=== PATIENT | male | born 2000 | race African-American/Black ===

== ENCOUNTER 2022-11-06 12:20 | Emergency (ER) | payer BC, SELFPAY ==
[2022-11-06 12:22] VITALS: BP 133/99; RESP 14; TEMP 36.2; O2SAT 98
[2022-11-06 12:36] LABS: Basophils Percent Auto 0.2 % (0.2-1.2); Eosinophils Percent Auto 0.3 % (0-4.4); Hematocrit 47.5 % (42.0-52.0); Hemoglobin 15.6 g/dL (14.0-18.0); Immature Granulocyte Absolute 0.05 K/mm3 (0.00-0.031); Immature Granulocyte Percent A 0.4 % (0-0.5); Lymphocytes Absolute Auto 0.82 K/mm3 (0.9-3.2); Mean Corpuscular HGB Conc 32.8 g/dl (32-36); Mean Corpuscular Hemoglobin 31.2 pg (26-34); Mean Platelet Volume 10.7 fl (7.4-10.4); Monocytes Absolute Auto 0.6 K/mm3 (0.1-0.6); Monocytes Percent Auto 4.9 % (2.6-8.5); Neutrophils Absolute Auto 10.2 K/mm3 (1.3-6.7); Neutrophils Percent Auto 87.2 % (45.5-73.1); Platelet Count Result 283 k/mm3 (150-375); White Blood Count 11.7 K/mm3 (4.5-10.0)
[2022-11-06 12:45] LABS: Alanine Aminotransferase 36 U/L (6-50); Albumin Level 4.9 g/dL (3.5-5.1); Alkaline Phosphatase 80 U/L (38-126); Anion Gap 9 mmol/L (8-16); Aspartate Amino Transferase 44 U/L (17-59); Bilirubin,Total 1.9 mg/dL (0.2-1.3); Blood Urea Nitrogen 13 mg/dL (9-20); Calcium 8.8 mg/dL (8.4-10.2); Carbon Dioxide 28 mmol/L (22-30); Chloride 102 mmol/L (98-107); Estimated CRCL calculation 179 ml/min; Estimated Glomerular Filt Rate > 60; Glucose 108 mg/dL (65-110); Lipase 20 U/L (23-300); Sodium 139 mmol/L (137-145)
--- NOTE | 2022-11-06 12:52 | ED.NAVMDI ---
HPI - Nausea/Vomiting/Diarrhea General Chief complaint: Nausea/Vomiting/Diarrhea Stated complaint: N/V/abdominal pain Time Seen by Provider: 11/06/22 12:30 Source: RN notes reviewed History of Present Illness HPI Narrative: Patient presents emergency room from home for nausea vomiting. Patient states that symptoms began approximate 1230 last night. States that he has had numerous episodes of nausea and vomiting states been associate with abdominal pain that is mid abdominal and described as cramping in nature. He denies having diarrhea. He denies any fevers or chills or any other symptoms. States he has not taken anything for the symptoms. Related Data Allergies Allergy/AdvReac Type Severity Reaction Status Date / Time No Known Allergies Allergy Verified 11/06/22 12:32 Review of Systems Review of Systems: Gen.: Denies fevers or chills ENT: Denies congestion Respiratory: Denies shortness of breath or cough CV: Denies chest pain or palpitations GI: See HPI Musculoskeletal: Denies back pain or muscle pain Neuro: Denies numbness, tingling, weakness or focal weakness Skin: Denies rash Except as documented, all other systems reviewed and negative [facility] Past Medical History Medical History (Updated 11/06/22 @ 14:58 by Robin Ferris DO) Patient denies significant medical history Social History Social History (Updated 11/06/22 @ 12:53 by Robin Ferris DO) Smoking status: Never smoker Exam Narrative: APPEARANCE: No acute distress, nontoxic, resting in bed HEENT: Normocephalic, atraumatic, OMM RESPIRATORY: No respiratory distress, clear to auscultation bilaterally with no rhonchi wheezing or rales CARDIOVASCULAR: RRR s murmur ABDOMINAL: Soft nondistended diffusely tender palpation no rebound or guarding MUSCULOSKELETAl: Moves all extremities. No clubbing, cyanosis or edema. NEURO: Awake and alert. Following commands, speech normal, no focal deficits SKIN:: Warm, dry. Normal Color PSYCHIATRIC: Normal affect/mood Course Course Emergency Course: Patient states he is feeling much better at this time able to drink in the ED with no emesis states abdominal pain has resolved Patient states that they are feeling much better at this time. States abdominal pain has resolved. Repeat abdominal exam shows the patient's abdomen to be soft and nontender. Discussed with patient results of workup and diagnosis. Discussed need for follow-up with primary care physician, reasons to return to the emergency department in proper use of medication. Patient understands and agrees to current treatment plan Vital Signs Vital signs: Vital Signs Temperature 97.1 F L 11/06/22 12:22 Respiratory Rate 14 11/06/22 12:22 Blood Pressure 133/99 H 11/06/22 12:22 Pulse Oximetry 98 11/06/22 12:22 Oxygen Delivery Room Air 11/06/22 12:22 Temperature 97.1 F L 11/06/22 12:22 Pulse Rate 78 11/06/22 13:06 Respiratory Rate 14 11/06/22 12:22 Blood Pressure 137/84 11/06/22 13:06 Pulse Oximetry 98 11/06/22 12:22 Oxygen Delivery Room Air 11/06/22 12:22 MDM - Nausea/Vomiting/Diarrhea MDM Narrative Medical decision making narrative: Patient's abdomen is soft without significant pain or signs of surgical abdomen on serial exams. Lab and x-ray evaluations are reviewed and patient is felt to be a reasonable candidate for outpatient management. Patient was instructed as to limitations of x-ray and laboratory evaluation and encouraged to return to ED or primary physician for repeat exam in 12 hours if continued or worsening pain Lab Data 11/06/22 12:28 11/06/22 12:28 Labs: Lab Results 11/06/22 11/06/22 11/06/22 Range/Units 12:28 12:28 14:11 WBC 11.7 H (4.5-10.0) K/mm3 RBC 5.00 (4.6-6.20) M/mm3 Hgb 15.6 (14.0-18.0) g/dL Hct 47.5 (42.0-52.0) % MCV 95.0 (80-100) fl MCH 31.2 (26-34) pg MCHC 32.8 (32-36) g/dl RDW 12.0 (11.5-14.5) % Plt Count
[2022-11-06 13:05] VITALS: BP 126/74; BP 134/69; PULSE 79; PULSE 80
[2022-11-06 13:06] VITALS: BP 137/84; PULSE 78
[2022-11-06] MEDS: ONDANSETRON INJ 4 MG/2 ML VIAL IV PUSH (13:17)
[2022-11-06] MEDS: SODIUM CHLORIDE 0.9% IV 1,000 ML 999 ML IV CONT ×2 (13:17→14:43)
[2022-11-06] MEDS: KETOROLAC 30 MG/ML VIAL (*BKC) IV PUSH (13:17)
[2022-11-06] MEDS: FAMOTIDINE 20 MG/2 ML VIAL IV PUSH (13:18)
[2022-11-06 14:24] LABS: Appearance Urine Clear (Clear); Bacteria Urine None Seen /hpf; Bilirubin Urine Negative (Negative); Blood Urine Negative (Negative); Color Urine Yellow (Yellow); Glucose Urine UA Negative (Negative); Ketones Urine Negative (Negative); Leukocyte Esterase Ur Trace LEU/UL (Negative); Nitrate Urine Negative (Negative); Non Pathogenic Casts 0-2; Protein Urine Trace mg/dL (Negative); RBC Urine 0-2 /hpf (0-2); Specific Grav Ur 1.029 (1.001-1.035); Squamous Epithelial Cell Urine None seen /hpf (Few); WBC Urine 0-5 /hpf
[2022-11-06 14:33] LABS: Add Urine Microscopic? YES
== END 2022-11-06 15:14 | disposition home or self-care (01) ==
PROVIDERS: Emergency Provider Emergency Medicine
DX: R11.2 Nausea with vomiting, unspecified (principal); R10.84 Generalized abdominal pain
CPT/HCPCS: 36415; 80053; 81001; 83690; 85025; 96361; 96374; 96375; 99284; J1885; J2405; J7030

== ENCOUNTER 2023-01-29 09:02 | Emergency (ER) | payer BC, SELFPAY ==
[2023-01-29] VITALS (20 sets, daily range): BP systolic 102–138; BP diastolic 68–89; PULSE 72–101; RESP 15–27; TEMP 37; O2SAT 95–100
--- NOTE | ~2023-01-29 | XR_ITS ---
EXAMINATION: XR lumbar spine min 4V DATE: 01/29/2023 09:54 INDICATION: Low back pain TECHNIQUE: Anteroposterior, lateral, and bilateral oblique views of the lumbar spine, and cone-down l ateral view of the lumbosacral junction were obtained. COMPARISON: None. FINDINGS: No fracture, dislocation, or subluxation. The vertebral body heights, alignment, and interv ertebral disc spaces are normal. The paravertebral soft tissues are unremarkable. There is a 3 mm lef t pelvic calcification. Spina bifida occulta is noted at S1. IMPRESSION: 1. No acute osseous abnormality. 2. 3 mm left pelvic calcification which could reflect a phlebolith however recommend correlating for left flank pain as distal ureteral stone would have a similar appearance. Reviewed, dictated and finalized at location A. IMPRESSION: 1. No acute osseous abnormality. 2. 3 mm left pelvic calcification which could reflect a phlebolith however tammy mmend correlating for left flank pain as distal ureteral stone would have a sim ilar appearance.
--- NOTE | 2023-01-29 09:17 | ED.GENADULT ---
HPI - General Adult General Chief complaint: Headache Stated complaint: Headache, bodyache, dehdyrated Time Seen by Provider: 01/29/23 09:13 Source: patient Mode of arrival: ambulatory Limitations: no limitations History of Present Illness HPI narrative: Patient is a 22 y/o male who presents to the ED with c/o headache and LBP. Patient reports having a diffuse headache for the past 2 days. He states pain has been constant. He has tried taking Tylenol with minimal relief. Denies history of migraines. He also reports having nausea and low back pain for the last 1 day. Patient states he feels like he is dehydrated. He has been eating and drinking normally, but states it feels similar to when he was previously dehydrated. He denies working out in the heat, denies any recent fall or injury, strenuous activity, heavy lifting. Denies dizziness, lightheadedness, vomiting, abdominal pain, diarrhea, vision changes, numbness, weakness, neck pain, fevers. Related Data Allergies Allergy/AdvReac Type Severity Reaction Status Date / Time No Known Allergies Allergy Verified 01/29/23 09:12 Review of Systems Review of Systems: CONSTITUTIONAL: Denies fever, chills, or sweats. EYES: Denies visual changes. CARDIOVASCULAR: Denies chest pain. RESPIRATORY: Denies dyspnea. GASTROINTESTINAL: See HPI. GENITOURINARY: Denies dysuria or hematuria. MUSCULOSKELETAL: See HPI. NEUROLOGIC: See HPI. All systems reviewed & are unremarkable except as noted in HPI and below PMFSH Past Medical History Medical History Patient denies significant medical history Social History Social History Smoking status: Never smoker Exam Narrative: GENERAL: Well appearing, obese with BMI of 33.1, non-toxic, in no acute distress. HEAD: Normocephalic, atraumatic. ENT: MMs moist. NECK: Supple. No adenopathy, no masses. No meningeal signs. RESPIRATORY: Airway patent, respirations nonlabored. Clear to auscultation bilaterally, no rales, rhonchi, wheezing. CARDIOVASCULAR: Regular rate and rhythm without murmurs, rubs, or gallops. Radial pulses 2+ and equal bilaterally. ABDOMINAL: Soft, nontender, nondistended, no hepatosplenomegaly. Normoactive BS. MUSCULOSKELETAL: Moves all extremities. Strength/ROM intact without gross deformities. Very minimal lower midline lumbar paraspinal musculature tenderness bilaterally. No significant midline spinal tenderness. No palpable deformities or bony step-offs. SKIN: Warm, dry, normal color. No rashes. NEURO: A&O X3. Speech clear. Cranial nerves II-XII grossly intact. Steady gait. No ataxic movements. No neurologic deficits. PSYCHIATRIC: Appropriate mood and affect. Normal interaction. Course Vital Signs Vital signs: Vital Signs Temperature 98.6 F 01/29/23 09:08 Pulse Rate 101 H 01/29/23 09:08 Respiratory Rate 18 01/29/23 09:08 Blood Pressure 132/77 01/29/23 09:08 Pulse Oximetry 98 01/29/23 09:08 Oxygen Delivery Room Air 01/29/23 09:08 Temperature 98.6 F 01/29/23 09:08 Pulse Rate 72 01/29/23 11:19 Respiratory Rate 15 01/29/23 11:19 Blood Pressure 124/68 01/29/23 11:19 Pulse Oximetry 100 01/29/23 11:19 Oxygen Delivery Room Air 01/29/23 09:08 Medical Decision Making MDM Narrative Medical decision making narrative: Patient presented to ED with headache and low back pain, felt like he was dehydrated. Borderline tachycardic upon arrival, otherwise vital stable. Patient in no acute distress. Exam unremarkable. No focal neurologic deficits. Basic blood work obtained and unremarkable. No significant electrolyte abnormality. No significant signs of dehydration. X-ray lumbar spine without acute osseous abnormalities, did show possible phleboliths in the left pelvic region, could be appearance of distal ureter stone. Patient without any left flank pain. D
[2023-01-29 09:46] LABS: Basophils Percent Auto 0.5 % (0.2-1.2); Eosinophils Absolute Auto 0.1 K/mm3 (0-0.3); Eosinophils Percent Auto 1.4 % (0-4.4); Hematocrit 41.1 % (42.0-52.0); Hemoglobin 13.7 g/dL (14.0-18.0); Immature Granulocyte Absolute 0.02 K/mm3 (0.00-0.031); Immature Granulocyte Percent A 0.3 % (0-0.5); Lymphocytes Absolute Auto 0.74 K/mm3 (0.9-3.2); Lymphocytes Percent Auto 9.6 % (18.3-44.2); Mean Corpuscular HGB Conc 33.3 g/dl (32-36); Mean Corpuscular Hemoglobin 30.5 pg (26-34); Mean Corpuscular Volume 91.5 fl (80-100); Mean Platelet Volume 10.3 fl (7.4-10.4); Monocytes Absolute Auto 0.8 K/mm3 (0.1-0.6); Neutrophils Percent Auto 78.2 % (45.5-73.1); Platelet Count Result 241 k/mm3 (150-375); Red Blood Count 4.49 M/mm3 (4.6-6.20); Red Cell Distribution Width 11.6 % (11.5-14.5); White Blood Count 7.7 K/mm3 (4.5-10.0)
[2023-01-29] MEDS: ACETAMINOPHEN 500 MG TABLET 1000 MG PO (09:51)
[2023-01-29] MEDS: KETOROLAC 30 MG/ML VIAL (*BKC) IV PUSH (09:52)
[2023-01-29] MEDS: SODIUM CHLORIDE 0.9% IV 1,000 ML 999 ML IV CONT (09:52)
[2023-01-29] MEDS: ONDANSETRON INJ 4 MG/2 ML VIAL IV PUSH (09:52)
[2023-01-29 09:56] LABS: Alanine Aminotransferase 33 U/L (6-50); Albumin Level 4.2 g/dL (3.5-5.1); Alkaline Phosphatase 61 U/L (38-126); Anion Gap 8 mmol/L (8-16); Aspartate Amino Transferase 29 U/L (17-59); Bilirubin,Total 0.8 mg/dL (0.2-1.3); Blood Urea Nitrogen 13 mg/dL (9-20); Calcium 8.8 mg/dL (8.4-10.2); Carbon Dioxide 26 mmol/L (22-30); Chloride 102 mmol/L (98-107); Estimated CRCL calculation 155 ml/min; Estimated Glomerular Filt Rate > 60; Glucose 96 mg/dL (65-110); Magnesium 1.7 mg/dL (1.6-2.3); Potassium 3.9 mmol/L (3.4-5.0); Sodium 136 mmol/L (137-145)
[2023-01-29 10:34] LABS: Influenza A QL RT-PCR Negative (Negative); Influenza B QL RT-PCR Negative (Negative); SARS-CoV-2 RNA PCR Negative (Negative)
[2023-01-29 10:46] LABS: Appearance Urine Clear (Clear); Bilirubin Urine Negative (Negative); Blood Urine Negative (Negative); Color Urine Yellow (Yellow); Glucose Urine UA Negative (Negative); Ketones Urine Negative (Negative); Leukocyte Esterase Ur Negative LEU/UL (Negative); Nitrate Urine Negative (Negative); Protein Urine Negative (Negative); Urobilinogen Urine 0.2 mg/dL (<2.0); pH Urine 8.5 (5.0-9.0)
[2023-01-29 10:47] LABS: Add Urine Microscopic? NO
== END 2023-01-29 11:19 | disposition home or self-care (01) ==
PROVIDERS: Emergency Provider Physician Assistant
DX: R51.9 Headache, unspecified (principal); S39.012A Strain of muscle, fascia and tendon of lower back, initial encounter; Z20.822 Contact with and (suspected) exposure to COVID-19; X58.XXXA Exposure to other specified factors, initial encounter
CPT/HCPCS: 36415; 72110; 80053; 81003; 83735; 85025; 87636; 96361; 96374; 96375; 99284; A9270; J1885; J2405; J7030

== ENCOUNTER 2023-02-10 06:41 | Emergency (ER) | payer BC, SELFPAY ==
[2023-02-10 06:42] VITALS: BP 128/80; PULSE 92; RESP 14; TEMP 36.6; O2SAT 96
--- NOTE | 2023-02-10 07:11 | PC.NURSE ---
pt reports taking tylenol at 0500 but states it did not help the pain
[2023-02-10 07:15] VITALS: BP 117/80; PULSE 85; RESP 16; O2SAT 98
--- NOTE | 2023-02-10 07:27 | ED.EAR ---
HPI - Ear Problem General Chief complaint: Ear Stated complaint: L ear pain Time Seen by Provider: 02/10/23 07:01 History of Present Illness HPI Narrative: Patient is a 22-year-old male who presents to the ER with pain to the left ear. Increased over the last evening. Throbbing with muffled hearing. No sinus congestion or sore throat or cough. No fevers or chills. No additional concerns. No drainage. Related Data Allergies Allergy/AdvReac Type Severity Reaction Status Date / Time No Known Allergies Allergy Verified 02/10/23 07:12 Review of Systems Constitutional: Constitutional: Denies chills and Denies fever(s) ENT: Denies nasal congestion and Denies sore throat Comments: ear pain, muffled hearing PMFSH Past Medical History Medical History Patient denies significant medical history Social History Social History Smoking status: Never smoker Exam Narrative: GENERAL: Well-appearing, well-nourished, and in no acute distress. HEAD: Normocephalic, atraumatic. ENT: Mucous membranes moist. Left eardrum red and inflamed. Bulging. No drainage or perforation. NECK: Supple. EXTREMITIES: Normal range of motion. No edema. NEURO: Alert and oriented x3. PSYCH: Normal mood and affect. Course Course Emergency Course: Patient resting comfortably. Discussed treatment plan. Patient verbalized understanding. Discharge home. Vital Signs Vital signs: Vital Signs Temperature 97.8 F 02/10/23 06:42 Pulse Rate 92 02/10/23 06:42 Respiratory Rate 14 02/10/23 06:42 Blood Pressure 128/80 02/10/23 06:42 Pulse Oximetry 96 02/10/23 06:42 Oxygen Delivery Room Air 02/10/23 06:42 Temperature 97.8 F 02/10/23 06:42 Pulse Rate 85 02/10/23 07:15 Respiratory Rate 16 02/10/23 07:15 Blood Pressure 117/80 02/10/23 07:15 Pulse Oximetry 98 02/10/23 07:15 Oxygen Delivery Room Air 02/10/23 06:42 Medical Decision Making Vital Signs Vital Signs: Vital Signs Temperature 97.8 F 02/10/23 06:42 Pulse Rate 92 02/10/23 06:42 Respiratory Rate 14 02/10/23 06:42 Blood Pressure 128/80 02/10/23 06:42 Pulse Oximetry 96 02/10/23 06:42 Oxygen Delivery Room Air 02/10/23 06:42 Temperature 97.8 F 02/10/23 06:42 Pulse Rate 85 02/10/23 07:15 Respiratory Rate 16 02/10/23 07:15 Blood Pressure 117/80 02/10/23 07:15 Pulse Oximetry 98 02/10/23 07:15 Oxygen Delivery Room Air 02/10/23 06:42 Discharge Plan Discharge Clinical Impression: Otitis media Patient Disposition: Home, Self-Care Condition: Stable Instructions: Antibiotic Form, Ear Infection (ED) Additional Instructions: Return the ER if you have increased pain, you have swelling behind your ear, we have additional concerns. Prescriptions: New amoxicillin 875 mg tablet 875 mg PO Q12H Qty: 14 0RF hydrocodone-acetaminophen 5-325 mg tablet 1 tablet PO Q6H PRN (Reason: pain) Qty: 10 0RF No Action famotidine [Pepcid AC] 20 mg tablet 20 mg PO DAILY Qty: 14 0RF ibuprofen 600 mg tablet 600 mg PO TID PRN (Reason: pain) Qty: 14 0RF ondansetron 4 mg tablet,disintegrating 4 mg PO Q6H PRN (Reason: nausea and vomiting) Qty: 10 0RF Follow-up/Referrals: PHYSICIAN,DRAINMAN [Primary Care Provider] - Jun Walden MD [Physician] - 1 Week
== END 2023-02-10 07:38 | disposition home or self-care (01) ==
PROVIDERS: Emergency Provider Emergency Medicine
DX: H66.92 Otitis media, unspecified, left ear (principal)
CPT/HCPCS: 99283

== ENCOUNTER 2023-06-07 04:12 | Emergency (ER) | payer BC, SELFPAY ==
[2023-06-07 04:15] VITALS: BP 127/58; PULSE 74; RESP 18; TEMP 36.8; O2SAT 98
--- NOTE | 2023-06-07 04:27 | ED.GENADULT ---
HPI - General Adult General Chief complaint: Dental/Oral Stated complaint: toothache Time Seen by Provider: 06/07/23 04:20 History of Present Illness HPI narrative: Patient a 22-year-old gentleman who presents emergency department with chief complaint of dental pain. Patient reports yesterday started having pain in his lower wisdom tooth area on the left. Patient reports has not seen a dentist. Patient reports no trismus denies purulent drainage denies fever Related Data Allergies Allergy/AdvReac Type Severity Reaction Status Date / Time No Known Allergies Allergy Verified 06/07/23 04:19 Review of Systems Review of Systems: A 10 system review of systems was completed on the patient and is negative except for what is stated in the HPI. Nursing and ancillary documentation was reviewed. PMFSH Past Medical History Medical History Patient denies significant medical history Social History Social History Smoking status: Never smoker Exam Narrative: GENERAL: Well-appearing, well-nourished, and in no acute distress. HEAD: Normocephalic, atraumatic. EYES: PERRLA and EOMI. ENT: Nares clear, no rhinorrhea or epistaxis. Mucous membranes moist. There is an impacted wisdom tooth in the left lower molar there is tenderness to palpation NECK: Supple. CHEST: Clear to auscultation. No respiratory distress. HEART: Regular rate and rhythm. No murmur heard. Normal peripheral pulses. ABDOMEN: Soft, nontender, nondistended, normal active bowel sounds. EXTREMITIES: Normal range of motion. No edema. SKIN: Warm, dry, no rash. NEURO: No focal deficits. Alert and oriented x3. PSYCH: Normal mood and affect. Course Vital Signs Vital signs: Vital Signs Temperature 36.8 C 06/07/23 04:15 Pulse Rate 74 06/07/23 04:15 Respiratory Rate 18 06/07/23 04:15 Blood Pressure 127/58 L 06/07/23 04:15 Pulse Oximetry 98 06/07/23 04:15 Oxygen Delivery Room Air 06/07/23 04:15 Temperature 36.8 C 06/07/23 04:15 Pulse Rate 74 06/07/23 04:15 Respiratory Rate 18 06/07/23 04:15 Blood Pressure 127/58 L 06/07/23 04:15 Pulse Oximetry 98 06/07/23 04:15 Oxygen Delivery Room Air 06/07/23 04:15 Medical Decision Making MDM Narrative Medical decision making narrative: Differential diagnosis includes dental abscess, dental impaired Patient was started on amoxicillin and a NSAID Vital Signs Vital Signs: Vital Signs Temperature 36.8 C 06/07/23 04:15 Pulse Rate 74 06/07/23 04:15 Respiratory Rate 18 06/07/23 04:15 Blood Pressure 127/58 L 06/07/23 04:15 Pulse Oximetry 98 06/07/23 04:15 Oxygen Delivery Room Air 06/07/23 04:15 Temperature 36.8 C 06/07/23 04:15 Pulse Rate 74 06/07/23 04:15 Respiratory Rate 18 06/07/23 04:15 Blood Pressure 127/58 L 06/07/23 04:15 Pulse Oximetry 98 06/07/23 04:15 Oxygen Delivery Room Air 06/07/23 04:15 Discharge Plan Discharge Clinical Impression: Dental caries, Dental abscess Patient Disposition: Home, Self-Care Condition: Stable Instructions: Antibiotic Form, Dental Abscess (ED) Prescriptions: New amoxicillin 500 mg capsule 500 mg PO Q8H 10 Days Qty: 30 0RF diclofenac potassium 50 mg tablet 50 mg PO TID PRN (Reason: pain) Qty: 21 0RF No Action amoxicillin 875 mg tablet 875 mg PO Q12H Qty: 14 0RF hydrocodone-acetaminophen 5-325 mg tablet 1 tablet PO Q6H PRN (Reason: pain) Qty: 10 0RF famotidine [Pepcid AC] 20 mg tablet 20 mg PO DAILY Qty: 14 0RF ibuprofen 600 mg tablet 600 mg PO TID PRN (Reason: pain) Qty: 14 0RF ondansetron 4 mg tablet,disintegrating 4 mg PO Q6H PRN (Reason: nausea and vomiting) Qty: 10 0RF Follow-up/Referrals: Mario Crow MD [Physician] - PHYSICIAN,[employer] [Primary Care Provider] - Time of Disposition
[2023-06-07] MEDS: IBUPROFEN 400 MG TABLET 800 MG PO (04:38)
[2023-06-07] MEDS: AMOXICILLIN 500 MG CAPSULE PO (04:39)
== END 2023-06-07 04:42 | disposition home or self-care (01) ==
LOC: ANHED 04:33
PROVIDERS: Emergency Provider Emergency Medicine
DX: K02.9 Dental caries, unspecified (principal); K04.7 Periapical abscess without sinus
CPT/HCPCS: 99283; A9270

== ENCOUNTER 2023-07-12 23:57 | Emergency (ER) | payer BC, SELFPAY ==
[2023-07-13] VITALS: BP 119/82; PULSE 95; RESP 20; TEMP 36.7; O2SAT 100
--- NOTE | 2023-07-13 00:13 | ED.URI ---
HPI - URI/Sore Throat General Chief Complaint: Upper Respiratory Infection Stated Complaint: exposure to rsv Time Seen by Provider: 07/13/23 00:04 History of Present Illness HPI Narrative: 23-year-old male reports for evaluation for a headache, sore throat, nasal congestion, mild productive cough, nausea and generalized body aches for the past day. Patient states his daughter was recently sick with what he thinks was RSV and thinks she may have passed it to him. He denies head injury or trauma, syncope, chest pain or shortness of breath, fever, abdominal pain, vomiting, diarrhea, urinary complaints. Patient states he feels very dehydrated because every time he tries to drink water he gets nauseous. He is requesting IV fluids. Related Data Allergies Allergy/AdvReac Type Severity Reaction Status Date / Time No Known Allergies Allergy Verified 06/07/23 04:19 Review of Systems Review of Systems: CONSTITUTIONAL: Denies fever, chills, or sweats. EYES: Denies visual changes, redness, or discharge. ENT: See HPI CARDIOVASCULAR: Denies chest pain, palpitations, or edema. RESPIRATORY: See HPI GASTROINTESTINAL: Denies abdominal pain, nausea, vomiting, or diarrhea. GENITOURINARY: Denies dysuria or hematuria. SKIN: Denies rash or itching. MUSCULOSKELETAL: Denies back pain, joint pain, or myalgia. NEUROLOGIC: See HPI PSYCHIATRIC: Denies anxiety or depression. PMFSH Past Medical History Medical History Patient denies significant medical history Social History Social History Smoking status: Never smoker Exam Narrative: GENERAL: Well-appearing, well-nourished, and in no acute distress. HEAD: Normocephalic, atraumatic. EYES: PERRLA and EOMI. ENT: Nares congested, no epistaxis. Mucous membranes moist. Bilateral TMs are bae nonbulging, normal canals. Posterior pharynx with mild erythema, no tonsillar hypertrophy, exudates. Uvula is midline NECK: Supple. CHEST: Clear to auscultation. No respiratory distress. HEART: Regular rate and rhythm. No murmur heard. Normal peripheral pulses. ABDOMEN: Soft, nontender, nondistended, normal active bowel sounds. No CVA tenderness. EXTREMITIES: Normal range of motion. No edema. SKIN: Warm, dry, no rash. NEURO: No focal deficits. Alert and oriented x3. Cranial nerves 2-12 intact. Strength 5/5 BP in BLE. Sensation intact throughout. Normal [id number]. No pronator drift. Course Vital Signs Vital signs: Vital Signs Temperature 98.0 F 07/13/23 00:00 Pulse Rate 95 07/13/23 00:00 Respiratory Rate 20 07/13/23 00:00 Blood Pressure 119/82 07/13/23 00:00 Pulse Oximetry 100 07/13/23 00:00 Oxygen Delivery Room Air 07/13/23 00:00 Temperature 98.0 F 07/13/23 00:00 Pulse Rate 95 07/13/23 00:00 Respiratory Rate 20 07/13/23 00:00 Blood Pressure 119/82 07/13/23 00:00 Pulse Oximetry 100 07/13/23 00:00 Oxygen Delivery Room Air 07/13/23 00:47 MDM - URI/Sore Throat MDM Narrative Medical decision making narrative: 23-year-old male reports for evaluation for headache and URI symptoms for 1 day. See HPI for further history. Vitals are stable and he is afebrile. Exam significant for the above. SAH r/o with [place]. No red flag headache signs. Labs and UA unremarkable. Covid, flu, RSV and strep negative. Pt received fluids, toradol, tylenol and zofran with improvement. Labs discussed. Plan to discharge home with flonase and zofran. Encouraged increase fluid intake and close follow up with PCP. ED return precautions discussed. He is agreeable with the plan and verbalized understanding. D/C in stable condition. Lab Data 07/13/23 00:28 07/13/23 00:28 Labs: Lab Results 07/13/23 07/13/23 Range/Units 00:05 00:28 WBC Pending RBC Pending Hgb Pending Hct Pending MCV Pending MCH
[2023-07-13] MEDS: SODIUM CHLORIDE 0.9% IV 1,000 ML 999 ML IV CONT (00:32)
[2023-07-13] MEDS: ONDANSETRON INJ 4 MG/2 ML VIAL IV PUSH (00:33)
[2023-07-13 00:42] LABS: Appearance Urine Clear (Clear); Bacteria Urine None Seen /hpf; Bilirubin Urine Negative (Negative); Blood Urine Negative (Negative); Color Urine Yellow (Yellow); Glucose Urine UA Negative (Negative); Ketones Urine Trace mg/dL (Negative); Leukocyte Esterase Ur Negative LEU/UL (Negative); Nitrate Urine Negative (Negative); Non Pathogenic Casts 0-2; Protein Urine Trace mg/dL (Negative); RBC Urine 0-2 /hpf (0-2); Specific Grav Ur 1.033 (1.001-1.035); Squamous Epithelial Cell Urine None seen /hpf (Few); WBC Urine 0-5 /hpf
[2023-07-13 00:45] LABS: Influenza A QL RT-PCR Negative (Negative); Influenza B QL RT-PCR Negative (Negative); RSV RNA, RT-PCR Negative (Negative); SARS-CoV-2 RNA PCR Negative (Negative)
[2023-07-13 00:48] LABS: Alanine Aminotransferase 25 U/L (6-50); Albumin Level 4.7 g/dL (3.5-5.1); Alkaline Phosphatase 80 U/L (38-126); Anion Gap 11 mmol/L (8-16); Aspartate Amino Transferase 27 U/L (17-59); Bilirubin,Total 1.1 mg/dL (0.2-1.3); Blood Urea Nitrogen 12 mg/dL (9-20); Carbon Dioxide 27 mmol/L (22-30); Chloride 101 mmol/L (98-107); Estimated CRCL calculation 137 ml/min; Estimated Glomerular Filt Rate > 60; Glucose 104 mg/dL (65-110); Potassium 3.6 mmol/L (3.4-5.0); Sodium 139 mmol/L (137-145)
[2023-07-13 00:51] LABS: Basophils Percent Auto 0.4 % (0.2-1.2); Eosinophils Percent Auto 0.4 % (0-4.4); Hematocrit 45.5 % (42.0-52.0); Hemoglobin 15.3 g/dL (14.0-18.0); Immature Granulocyte Absolute 0.03 K/mm3 (0.00-0.031); Immature Granulocyte Percent A 0.3 % (0-0.5); Lymphocytes Absolute Auto 0.91 K/mm3 (0.9-3.2); Lymphocytes Percent Auto 8.7 % (18.3-44.2); Mean Corpuscular HGB Conc 33.6 g/dl (32-36); Mean Corpuscular Volume 92.1 fl (80-100); Mean Platelet Volume 10.9 fl (7.4-10.4); Monocytes Absolute Auto 0.6 K/mm3 (0.1-0.6); Monocytes Percent Auto 6.1 % (2.6-8.5); Neutrophils Absolute Auto 8.9 K/mm3 (1.3-6.7); Neutrophils Percent Auto 84.1 % (45.5-73.1); Platelet Count Result 268 k/mm3 (150-375); Red Blood Count 4.94 M/mm3 (4.6-6.20); Red Cell Distribution Width 11.4 % (11.5-14.5); White Blood Count 10.5 K/mm3 (4.5-10.0)
[2023-07-13 00:59] LABS: Strep Group A RT-PCR NOT DETECTED (Negative)
[2023-07-13 01:08] LABS: Add Urine Microscopic? YES
[2023-07-13] MEDS: KETOROLAC 30 MG/ML VIAL (*BKC) IV PUSH (01:12)
[2023-07-13] MEDS: ACETAMINOPHEN 500 MG TABLET 1000 MG PO (01:12)
[2023-07-13 01:24] VITALS: BP 134/76; PULSE 87; RESP 16; O2SAT 98
== END 2023-07-13 01:25 | disposition home or self-care (01) ==
PROVIDERS: Emergency Medicine; Emergency Provider Physician Assistant
DX: B34.9 Viral infection, unspecified (principal); Z20.822 Contact with and (suspected) exposure to COVID-19
CPT/HCPCS: 36415; 80053; 81001; 85025; 87637; 87651; 96361; 96374; 96375; 99284; A9270; J1885; J2405; J7030

== ENCOUNTER 2023-09-28 20:19 | Emergency (ER) | payer BC, SELFPAY ==
[2023-09-28 20:22] VITALS: BP 135/84; PULSE 101; RESP 15; TEMP 37.1; O2SAT 99
[2023-09-28 20:55] LABS: Basophils Percent Auto 0.2 % (0.2-1.2); Eosinophils Absolute Auto 0.1 K/mm3 (0-0.3); Eosinophils Percent Auto 0.9 % (0-4.4); Hemoglobin 15.6 g/dL (14.0-18.0); Immature Granulocyte Absolute 0.02 K/mm3 (0.00-0.031); Immature Granulocyte Percent A 0.2 % (0-0.5); Lymphocytes Absolute Auto 1.36 K/mm3 (0.9-3.2); Mean Corpuscular HGB Conc 33.2 g/dl (32-36); Mean Corpuscular Hemoglobin 30.7 pg (26-34); Mean Corpuscular Volume 92.5 fl (80-100); Mean Platelet Volume 10.3 fl (7.4-10.4); Monocytes Absolute Auto 0.6 K/mm3 (0.1-0.6); Monocytes Percent Auto 7.4 % (2.6-8.5); Neutrophils Percent Auto 74.3 % (45.5-73.1); Platelet Count Result 284 k/mm3 (150-375); Red Blood Count 5.08 M/mm3 (4.6-6.20); Red Cell Distribution Width 11.7 % (11.5-14.5)
[2023-09-28 21:05] LABS: Alanine Aminotransferase 19 U/L (6-50); Albumin Level 4.6 g/dL (3.5-5.1); Alkaline Phosphatase 81 U/L (38-126); Anion Gap 9 mmol/L (8-16); Aspartate Amino Transferase 23 U/L (17-59); Bilirubin,Total 0.8 mg/dL (0.2-1.3); Blood Urea Nitrogen 11 mg/dL (9-20); Calcium 9.3 mg/dL (8.4-10.2); Carbon Dioxide 25 mmol/L (22-30); Chloride 105 mmol/L (98-107); Estimated CRCL calculation 134 ml/min; Estimated Glomerular Filt Rate > 60; Glucose 106 mg/dL (65-110); Lipase 31 U/L (23-300); Potassium 3.9 mmol/L (3.4-5.0); Sodium 139 mmol/L (137-145)
--- NOTE | 2023-09-28 21:07 | ED.GENADULT ---
[facility] - General Adult General Chief complaint: Abdominal Pain Stated complaint: abd pain/N/V Time Seen by Provider: 09/28/23 20:30 Source: patient Mode of arrival: ambulatory Limitations: no limitations History of Present Illness HPI narrative: This is a 23-year-old male who presents to the ED with chief complaint of generalized abdominal pain beginning and 0200 this morning. Reports that today he has had 4 episodes of vomiting and 2 episodes of diarrhea. Denies any GI bleeding symptoms. He reports eating sushi last night is not sure if he has food poisoning. Reports diarrhea sometimes alleviate the abdominal pain. The pain seems to come and go and is not too severe at this point. Denies chest pain, shortness breath, sore throat, fevers, chills. Related Data Allergies Allergy/AdvReac Type Severity Reaction Status Date / Time No Known Allergies Allergy Verified 09/28/23 20:20 Review of Systems Review of Systems: All systems as dictated in [facility] Past Medical History Medical History Patient denies significant medical history Social History Social History Smoking status: Never smoker Exam Narrative: GENERAL: Well-appearing, well-nourished, and in no acute distress. HEAD: Normocephalic, atraumatic. EYES: PERRLA and EOMI. ENT: Nares clear, no rhinorrhea or epistaxis. Mucous membranes moist. Oropharynx without tonsillar hypertrophy exudate or other lesions. NECK: Supple. No adenopathy or masses. CHEST: No respiratory distress. Clear to auscultation. No wheezes rales or rhonchi HEART: Regular rate and rhythm. No murmur heard. Normal peripheral pulses. ABDOMEN: Soft, nontender, nondistended, normal active bowel sounds. MSK: Normal range of motion. No edema. SKIN: Warm, dry, no rash. NEURO: Alert and oriented x3. No focal deficits. PSYCH: Normal mood and affect. Course Course Emergency Course: Re-evaluation 2221: Patient is feeling much improved after antiemetics and fluids. He feels ready to go home. Vital Signs Vital signs: Vital Signs Temperature 98.7 F 09/28/23 20:22 Pulse Rate 101 H 09/28/23 20:22 Respiratory Rate 15 09/28/23 20:22 Blood Pressure 135/84 09/28/23 20:22 Pulse Oximetry 99 09/28/23 20:22 Oxygen Delivery Room Air 09/28/23 20:22 Temperature 98.7 F 09/28/23 20:22 Pulse Rate 68 09/28/23 22:57 Respiratory Rate 18 09/28/23 22:57 Blood Pressure 137/86 09/28/23 22:57 Pulse Oximetry 98 09/28/23 22:57 Oxygen Delivery Room Air 09/28/23 20:22 Medical Decision Making MDM Narrative Medical decision making narrative: This is a 23-year-old male who presents to the ED with chief complaint of generalized abdominal pain, N/V/D for the past 18 hours. Vitals are normal. Exam is benign. No abdominal tenderness or focal findings. Lab work shows normal CBC, normal CMP and lipase. Presentation is consistent with gastroenteritis. Shared decision making to avoid CT imaging at this time. Improved with fluids, Toradol and Zofran here. Pt will be discharged in stable condition. Return precautions given and supportive measures discussed. Pt is understanding and agreeable with plan for discharge and follow-up with PCP. Vital Signs Vital Signs: Vital Signs Temperature 98.7 F 09/28/23 20:22 Pulse Rate 101 H 09/28/23 20:22 Respiratory Rate 15 09/28/23 20:22 Blood Pressure 135/84 09/28/23 20:22 Pulse Oximetry 99 09/28/23 20:22 Oxygen Delivery Room Air 09/28/23 20:22 Temperature 98.7 F 09/28/23 20:22 Pulse Rate 68 09/28/23 22:57 Respiratory Rate 18 09/28/23 22:57 Blood Pressure 137/86 09/28/23 22:57 Pulse Oximetry 98 09/28/23 22:57 Oxygen Delivery Room Air 09/28/23 20:22 Lab Data 09/28/23 20:50 09/28/23 20:50 Labs: Lab Results 09/28/23 Range/Units
[2023-09-28] MEDS: SODIUM CHLORIDE 0.9% IV 1,000 ML 999 ML IV CONT (21:24)
[2023-09-28] MEDS: ONDANSETRON INJ 4 MG/2 ML VIAL IV PUSH (21:25)
[2023-09-28] MEDS: KETOROLAC 15 MG/ML VIAL (*BKC) IV PUSH (21:25)
[2023-09-28 22:57] VITALS: BP 137/86; PULSE 68; RESP 18; O2SAT 98
== END 2023-09-28 22:58 | disposition home or self-care (01) ==
PROVIDERS: Emergency Provider Physician Assistant
DX: K52.9 Noninfective gastroenteritis and colitis, unspecified (principal)
CPT/HCPCS: 36415; 80053; 83690; 85025; 96361; 96374; 96375; 99284; J1885; J2405; J7030

== ENCOUNTER 2024-01-16 16:54 | Emergency (ER) | payer BC, SELFPAY ==
[2024-01-16 16:58] VITALS: BP 134/82; PULSE 107; RESP 18; TEMP 36.8; O2SAT 97
--- NOTE | 2024-01-16 20:13 | PC.NURSE ---
pt called x 2 for blood work. no answer.
--- NOTE | 2024-01-16 20:36 | PC.NURSE ---
pt called again for blood work, no answer.
--- NOTE | 2024-01-16 20:53 | PC.NURSE ---
Pt called to go to room, no answer still.
--- NOTE | 2024-01-16 22:01 | PC.NURSE ---
last call for pt to go to a room, no answer.
== END 2024-01-16 23:50 | disposition left against medical advice (07) ==
LOC: ANHED 22:47
DX: R10.9 Unspecified abdominal pain (principal)
CPT/HCPCS: 99199

== ENCOUNTER 2024-02-03 11:20 | Emergency (ER) | payer BC, SELFPAY ==
[2024-02-03 11:22] VITALS: BP 142/92; PULSE 106; RESP 16; TEMP 36.4; O2SAT 99
[2024-02-03 11:34] VITALS: RESP 19
--- NOTE | 2024-02-03 12:16 | ED.GENADULT ---
HPI - General Adult General Chief complaint: Unspecified Stated complaint: throat hurts Time Seen by Provider: 02/03/24 12:07 Source: patient Mode of arrival: ambulatory Limitations: no limitations History of Present Illness HPI narrative: Woke up this morning with sore throat. He denies any fever, chills, nausea, vomiting, body aches, sneezing or coughing or sick contact. Related Data Allergies Allergy/AdvReac Type Severity Reaction Status Date / Time No Known Allergies Allergy Verified 02/03/24 11:23 Review of Systems Review of Systems: All systems reviewed & are unremarkable except as noted in HPI and below PMFSH Past Medical History Medical History Patient denies significant medical history Social History Social History Smoking status: Never smoker Exam Narrative: General appearance: Well-developed, well-nourished Skin: Normal color Head: Normocephalic, nontraumatic Eyes: Clear conjunctiva ENT: Oropharynx erythematous with white patches Neck: Supple, nontender Neurologic: Alert and oriented ?3, SHEARING MACHINE TENDER is normal as tested, no gross motor deficit Course Vital Signs Vital signs: Vital Signs Temperature 36.4 C 02/03/24 11:22 Pulse Rate 106 H 02/03/24 11:22 Respiratory Rate 16 02/03/24 11:22 Blood Pressure 142/92 H 02/03/24 11:22 Pulse Oximetry 99 02/03/24 11:22 Temperature 36.4 C 02/03/24 11:22 Pulse Rate 106 H 02/03/24 11:22 Respiratory Rate 19 02/03/24 11:34 Blood Pressure 142/92 H 02/03/24 11:22 Pulse Oximetry 99 02/03/24 11:22 Medical Decision Making [facility] Narrative Medical decision making narrative: Differential diagnosis include strep throat, viral pharyngitis, Rapid strep test came back positive Vital Signs Vital Signs: Vital Signs Temperature 36.4 C 02/03/24 11:22 Pulse Rate 106 H 02/03/24 11:22 Respiratory Rate 16 02/03/24 11:22 Blood Pressure 142/92 H 02/03/24 11:22 Pulse Oximetry 99 02/03/24 11:22 Temperature 36.4 C 02/03/24 11:22 Pulse Rate 106 H 02/03/24 11:22 Respiratory Rate 19 02/03/24 11:34 Blood Pressure 142/92 H 02/03/24 11:22 Pulse Oximetry 99 02/03/24 11:22 Lab Data Labs: Lab Results 02/03/24 Range/Units 11:54 Influenza A (RT-PCR) Negative (Negative) Influenza B (RT-PCR) Negative (Negative) RSV (RT-PCR) Negative (Negative) SARS-CoV-2 RNA (RT-PCR) Negative (Negative) Group A Strep (PCR) Detected A (Negative) Critical Care Time Critical Care Time Critical Care Time: No Discharge Plan Discharge Clinical Impression: Strep throat Patient Disposition: Home, Self-Care Condition: Stable Instructions: Antibiotic Form, Strep Throat (ED) Additional Instructions: Return if symptoms are worsening , call your family physician for appointment, take Tylenol as as needed for aches and pain, continue home medications. Prescriptions: New amoxicillin 875 mg tablet 875 mg PO Q12H Qty: 20 0RF Follow-up/Referrals: UNKNOWN,DOCTOR [Primary Care Provider] -
[2024-02-03 12:24] LABS: Strep Group A RT-PCR DETECTED (Negative)
[2024-02-03 12:38] LABS: Influenza A QL RT-PCR Negative (Negative); Influenza B QL RT-PCR Negative (Negative); RSV RNA, RT-PCR Negative (Negative); SARS-CoV-2 RNA PCR Negative (Negative)
== END 2024-02-03 13:14 | disposition home or self-care (01) ==
PROVIDERS: Emergency Medicine; Emergency Provider Emergency Medicine
DX: J02.0 Streptococcal pharyngitis (principal); Z20.822 Contact with and (suspected) exposure to COVID-19
CPT/HCPCS: 87637; 87651; 99283

== ENCOUNTER 2024-09-18 06:45 | Emergency (ER) | payer SELFPAY ==
[2024-09-18 07:04] VITALS: BP 143/95; PULSE 90; RESP 16; TEMP 36.5; O2SAT 100
--- NOTE | 2024-09-18 08:58 | ED_ITS ---
HPI - Dental/Oral General Chief complaint: Dental/Oral Stated complaint: lower L dental pain Time Seen by Provider: 09/18/24 07:26 History of Present Illness HPI Narrative: Patient is a 24-year-old male who presents ER with pain at tooth 17. It is fractured. Sore over last week. No facial swelling. No difficulty breathing or swallowing. Related Data Allergies Allergy/AdvReac Type Severity Reaction Status Date / Time No Known Allergies Allergy Verified 09/18/24 06:45 Review of Systems Constitutional: Constitutional: Reports no additional constitutional complaints ENT: Reports system reviewed and no additional complaints, except as documented PMFSH Past Medical History Medical History Patient denies significant medical history Social History Social History Smoking status: Never smoker Exam Narrative: GENERAL: Well-appearing, well-nourished, and in no acute distress. HEAD: Normocephalic, atraumatic. ENT: Fracture of tooth 17. No facial swelling or discernible abscess. NECK: Supple. CHEST: Clear to auscultation. No respiratory distress. HEART: Regular rate and rhythm. Normal peripheral pulses. EXTREMITIES: Normal range of motion. No edema. NEURO: Alert and oriented x3. PSYCH: Normal mood and affect. Course Course Emergency Course: Discharge with oral antibiotic. Vital Signs Vital signs: Vital Signs Temperature 97.7 F 09/18/24 07:04 Pulse Rate 90 09/18/24 07:04 Respiratory Rate 16 09/18/24 07:04 Blood Pressure 143/95 H 09/18/24 07:04 Pulse Oximetry 100 09/18/24 07:04 Oxygen Delivery Room Air 09/18/24 07:04 Temperature 97.7 F 09/18/24 07:04 Pulse Rate 90 09/18/24 07:04 Respiratory Rate 16 09/18/24 07:04 Blood Pressure 143/95 H 09/18/24 07:04 Pulse Oximetry 100 09/18/24 07:04 Oxygen Delivery Room Air 09/18/24 07:04 Discharge Plan Discharge Clinical Impression: Toothache Patient Disposition: Home, Self-Care Condition: Stable Instructions: Toothache (ED) Additional Instructions: Take antibiotics as prescribed. Follow up with her dentist. Take Tylenol or ibuprofen as needed for pain. Patient Language: Pakistani Prescriptions: New amoxicillin-pot clavulanate 875-125 mg tablet 1 tablet PO Q12H Qty: 14 0RF No Action amoxicillin 875 mg tablet 875 mg PO Q12H Qty: 20 0RF Follow-up/Referrals: UNKNOWN,DOCTOR [Primary Care Provider] - 1 Week
== END 2024-09-18 09:23 | disposition home or self-care (01) ==
PROVIDERS: Emergency Provider Emergency Medicine
DX: K08.89 Other specified disorders of teeth and supporting structures (principal)
CPT/HCPCS: 99283

== ENCOUNTER 2024-10-20 04:05 | Emergency (ER) | payer MEDICAID, SELFPAY ==
--- OUTSIDE RECORDS SUMMARY | 2024-10-20 04:07 | XMS_ITS | Referral Summary ---
Author Organization [facility] Address [address] [place] [id number] Care Team Providers Care Type Bar And Segment Assembler Name Role Phone No, Physician Primary Care Provider [phone] Allergies No known active allergies Medications dextromethorphan-gu aiFENesin (TUSSIN-DM) liquid 10-100 mg/5 mLIndications:Cough Take 5 mL by mouth every 8 (eight) hours as needed for cough 120 mL 0 Active dicyclomine (BENTYL) 20 mg tablet Take 1 tablet (20 mg total) by mouth 2 (two) times a day as needed (stomach cramping) 10 tablet 1 Active lidocaine (LIDODERM) 5 % Place 2 patches on the skin daily as needed for pain Remove & discard patch within 12 hours or as directed by MD. 30 patch 1 Active methocarbamoL (ROBAXIN) 500 mg tablet Take 1 tablet (500 mg total) by mouth 4 (four) times a day as needed for muscle spasms 20 tablet 1 Active azithromycin (ZITHROMAX) 500 mg tablet 1 tab qhs for 3 days 3 tablet 1 Active ibuprofen (ADVIL,MOTRIN) 600 mg tablet Take 1 tablet (600 mg total) by mouth every 6 (six) hours as needed for pain With food 30 tablet 2 Active acetaminophen (TYLENOL) 500 mg tablet Take 2 tablets (1,000 mg total) by mouth every 8 (eight) hours as needed for pain or fever for up to 20 doses 40 tablet 2 Active ondansetron ODT (ZOFRAN-ODT) 4 mg disintegrating tablet Take 1 tablet (4 mg total) by mouth every 8 (eight) hours as needed for nausea or vomiting 20 tablet 2 Active ondansetron (ZOFRAN) 4 mg tablet Take 1 tablet (4 mg total) by mouth every 6 (six) hours 12 tablet 4 Active Active Problems No known active problems Social History Tobacco Use Types Packs/Day Years Used Date Smoking Tobacco: Every Day Cigarettes Smokeless Tobacco: Never Tobacco Cessation:Ready to Q uit: Not Asked; Counseling Given: Not Answered Alcohol Use Standard Drinks/Week Comments No 0 (1 standard drink = 0.6 oz pur e alcohol) Personal Safety Answer Date Recorded Have you ever been in or are you currently in a harmful physical or emotional relationship or is someone making you feel afraid or unsafe? Denies 07/11/2024 Sex and Gender Information Value Date Recorded Sex Assigned at Not on file Legal Sex Male 6:34 PM CDT Gender Identity Not on file Sexual Orientation Not on file Last Filed Vital Signs Vital Sign Reading Time Taken Comments Blood Pressure 128/81 07/11/2024 2:40 PM SUPERVISOR FILTRATION Pulse 92 07/11/2024 2:40 PM SUPERVISOR FILTRATION Temperature 36.6 C (97.9 F) 07/11/2024 12:20 PM SUPERVISOR FILTRATION Respiratory Rate 16 07/11/2024 2:40 PM SUPERVISOR FILTRATION Oxygen Saturation 100% 07/11/2024 2:40 PM SUPERVISOR FILTRATION Inhaled Oxygen Concentration - - Weight 86.2 kg (190 lb) 07/11/2024 12:20 PM SUPERVISOR FILTRATION Height 172.7 cm (5' 8 ) 07/11/2024 12:20 PM SUPERVISOR FILTRATION Body Mass Index 28.89 07/11/2024 12:20 PM SUPERVISOR FILTRATION Plan of Treatment Not on file Insurance [facility] PLAN ANTH ACCESS IDPA Care Teams Type Bar And Segment Assembler Relationship Specialty Start Date End Date No, Physician PCP - General 03/12/17
--- OUTSIDE RECORDS SUMMARY | 2024-10-20 04:07 | XMS_ITS | Clinical Summary ---
Author Organization [facility] Address [address] [place] [id number] Care Team Providers Care Special Procedures Technologist Name Role Phone No, Physician Primary Care Provider [phone] Allergies No known active allergies Medications dextromethorphan-gu [...] on file Sexual Orientation Not on file Obstetrics History Last Filed Vital Signs Vital Sign Reading Time Taken Comments Blood Pressure 128/81 07/11/2024 2:40 PM CLIENT SERVICE COORDINATOR Pulse 92 07/11/2024 2:40 PM CLIENT SERVICE COORDINATOR Temperature 36.6 C (97.9 F) 07/11/2024 12:20 PM CLIENT SERVICE COORDINATOR Respiratory Rate 16 07/11/2024 2:40 PM CLIENT SERVICE COORDINATOR Oxygen Saturation 100% 07/11/2024 2:40 PM CLIENT SERVICE COORDINATOR Inhaled Oxygen Concentration - - Weight 86.2 kg (190 lb) 07/11/2024 12:20 PM CLIENT SERVICE COORDINATOR Height 172.7 cm (5' 8 ) 07/11/2024 12:20 PM CLIENT SERVICE COORDINATOR Body Mass Index 28.89 07/11/2024 12:20 PM CLIENT SERVICE COORDINATOR Plan of Treatment Health Maintenance Due Date Last Done Comments Depression Screening 1998 Hepatitis C Screening 1998 DTaP/Tdap/Td Vaccine (1 - Tdap) 2009 Varicella Vaccines (1 of 2 - 13+ 2-dose series) 2011 HPV Vaccines (1 - Male 3-dose series) 2013 Hepatitis B Screening 2016 Regular Well Visit/Exam 18-64 2016 Pneumococcal vaccine <65 (1 of 2 - PCV) 2017 Covid-19 Vaccine (3 - season) 2024, 09/10/2021 Influenza Vaccine (#1) 2024 Insurance [facility] ANTH ACCESS IDPA Care Teams Special Procedures Technologist Relationship Specialty Start Date End Date No, Physician PCP - General 03/12/17
[2024-10-20 04:13] VITALS: BP 138/110; PULSE 65; RESP 18; O2SAT 97
--- NOTE | 2024-10-20 04:20 | ED.DENTAL ---
HPI - Dental/Oral General Chief complaint: Dental/Oral Stated complaint: tooth hurting Time Seen by Provider: 10/20/24 04:11 History of Present Illness HPI Narrative: Patient is a 24-year-old male who presents the ER with dental pain. Ongoing for 3 days. Lower right side of the jaw. Has impacted was in to is 32 but also fracture at 31. Refers up towards his ear on the right side. Cannot describe any alleviating factors. Unable sleep due to pain. No drainage her poor taste in the mouth. Related Data Allergies Allergy/AdvReac Type Severity Reaction Status Date / Time No Known Allergies Allergy Verified 09/18/24 06:45 Review of Systems Constitutional: Constitutional: Reports no additional constitutional complaints ENT: Reports system reviewed and no additional complaints, except as documented PMFSH Past Medical History Medical History Patient denies significant medical history Social History Social History Smoking status: Never smoker Exam Narrative: GENERAL: Well-appearing, well-nourished, and in no acute distress. HEAD: Normocephalic, atraumatic. ENT: Poor dentition, no fluctuant abscess intraorally. Mucous membranes moist. Normal TM on the right side NECK: Supple. CHEST: Clear to auscultation. No respiratory distress. HEART: Regular rate and rhythm. Normal peripheral pulses. EXTREMITIES: Normal range of motion. No edema.. NEURO: Alert and oriented x3. PSYCH: Normal mood and affect. Course Course Emergency Course: [place] for pain. Will start on oral antibiotic. Needs to see a dentist. Vital Signs Vital signs: Vital Signs Pulse Rate 65 10/20/24 04:13 Respiratory Rate 18 10/20/24 04:13 Blood Pressure 138/110 H 10/20/24 04:13 Pulse Oximetry 97 10/20/24 04:13 Pulse Rate 65 10/20/24 04:13 Respiratory Rate 18 10/20/24 04:13 Blood Pressure 138/110 H 10/20/24 04:13 Pulse Oximetry 97 10/20/24 04:13 Discharge Plan Discharge Clinical Impression: Toothache Patient Disposition: Home, Self-Care Condition: Stable Instructions: Toothache (ED) Additional Instructions: Return to the ER if you cannot breathe, cannot swallow, or have other concerns. You need to go see a dentist. Patient Language: Monegasque Prescriptions: New hydrocodone-acetaminophen 5-325 mg tablet 1 tablet PO Q6H PRN (Reason: pain) Qty: 5 0RF amoxicillin-pot clavulanate 875-125 mg tablet 1 tablet PO Q12H Qty: 14 0RF No Action amoxicillin-pot clavulanate 875-125 mg tablet 1 tablet PO Q12H Qty: 14 0RF amoxicillin 875 mg tablet 875 mg PO Q12H Qty: 20 0RF Follow-up/Referrals: Dental Referral Line [Outside] - 1 Week UNKNOWN,DOCTOR [Primary Care Provider] -
[2024-10-20] MEDS: HYDROcodone/acetaminophen (*CRX) 5-325 MG TABLET 1 TAB PO (04:22)
[2024-10-20 04:27] VITALS: BP 138/110; PULSE 65; RESP 18; O2SAT 97
--- OUTSIDE RECORDS SUMMARY | 2024-10-20 04:35 | XMS_ITS | Clinical Summary ---
Author Organization [facility] Address [address] [place] [phone] Care Team Providers Care Customer Engagement Analyst Name Role Phone No, Physician Primary Care Provider [phone] Allergies No known active allergies Medications dextromethorphan-gu [...] Comments Blood Pressure 128/81 07/11/2024 2:40 PM COBBLER SOLE Pulse 92 07/11/2024 2:40 PM COBBLER SOLE Temperature 36.6 C (97.9 F) 07/11/2024 12:20 PM COBBLER SOLE Respiratory Rate 16 07/11/2024 2:40 PM COBBLER SOLE Oxygen Saturation 100% 07/11/2024 2:40 PM COBBLER SOLE Inhaled Oxygen Concentration - - Weight 86.2 kg (190 lb) 07/11/2024 12:20 PM COBBLER SOLE Height 172.7 cm (5' 8 ) 07/11/2024 12:20 PM COBBLER SOLE Body Mass Index 28.89 07/11/2024 12:20 PM COBBLER SOLE Plan of Treatment Health Maintenance Due Date [...] 2024, 09/10/2021 Influenza Vaccine (#1) 2024 Insurance [facility] ANTH ACCESS IDPA Care Teams Customer Engagement Analyst Relationship Specialty Start Date End Date No, Physician PCP - General 03/12/17
--- OUTSIDE RECORDS SUMMARY | 2024-10-20 04:35 | XMS_ITS | Referral Summary ---
Author Organization [facility] Address [address] [place] [phone] Care Team Providers Care Income Tax Adjuster Name Role Phone No, Physician Primary Care Provider [phone] Allergies No known active allergies Medications [...] Comments Blood Pressure 128/81 07/11/2024 2:40 PM TEST CAR DRIVER Pulse 92 07/11/2024 2:40 PM TEST CAR DRIVER Temperature 36.6 C (97.9 F) 07/11/2024 12:20 PM TEST CAR DRIVER Respiratory Rate 16 07/11/2024 2:40 PM TEST CAR DRIVER Oxygen Saturation 100% 07/11/2024 2:40 PM TEST CAR DRIVER Inhaled Oxygen Concentration - - Weight 86.2 kg (190 lb) 07/11/2024 12:20 PM TEST CAR DRIVER Height 172.7 cm (5' 8 ) 07/11/2024 12:20 PM TEST CAR DRIVER Body Mass Index 28.89 07/11/2024 12:20 PM TEST CAR DRIVER Plan of Treatment Not on file Insurance [facility] PLAN ANTH ACCESS IDPA Care Teams Income Tax Adjuster Relationship Specialty Start Date End Date No, Physician PCP - General 03/12/17
== END 2024-10-20 04:36 | disposition home or self-care (01) ==
LOC: ANHED 04:33
PROVIDERS: Emergency Provider Emergency Medicine
DX: K08.89 Other specified disorders of teeth and supporting structures (principal)
CPT/HCPCS: 99283; A9270

== ENCOUNTER 2025-03-02 15:52 | Emergency (ER) | payer OTHER, SELFPAY ==
--- OUTSIDE RECORDS SUMMARY | 2025-03-02 15:55 | XMS_ITS | Clinical Summary ---
Author Organization [facility] Address [address] [place] [phone] Care Team Providers Care Actuarial Internship Name Role Phone No, Physician Primary Care Provider [phone] Allergies No known active allergies Medications dextromethorphan-gu [...] Comments Blood Pressure 128/81 07/11/2024 2:40 PM ASTRONOMY PROFESSOR Pulse 92 07/11/2024 2:40 PM ASTRONOMY PROFESSOR Temperature 36.6 C (97.9 F) 07/11/2024 12:20 PM ASTRONOMY PROFESSOR Respiratory Rate 16 07/11/2024 2:40 PM ASTRONOMY PROFESSOR Oxygen Saturation 100% 07/11/2024 2:40 PM ASTRONOMY PROFESSOR Inhaled Oxygen Concentration - - Weight 86.2 kg (190 lb) 07/11/2024 12:20 PM ASTRONOMY PROFESSOR Height 172.7 cm (5' 8) 07/11/2024 12:20 PM ASTRONOMY PROFESSOR Body Mass Index 28.89 07/11/2024 12:20 PM ASTRONOMY PROFESSOR Plan of Treatment Health Maintenance Due Date [...] - season) 2024, 09/10/2021 Influenza Vaccine (#1) 2025 Insurance [facility] ACCESS IDPA Care Teams Actuarial Internship Relationship Specialty Start Date End Date No, Physician PCP - General 03/12/17
--- OUTSIDE RECORDS SUMMARY | 2025-03-02 15:55 | XMS_ITS | Referral Summary ---
Author Organization [facility] Address [address] [place] [phone] Care Team Providers Care Research Chemical Engineer Name Role Phone No, Physician Primary Care Provider [phone] Allergies No known active allergies Medications dextromethorphan-gu [...] Comments Blood Pressure 128/81 07/11/2024 2:40 PM GEOLOGICAL SCIENCE TEACHER Pulse 92 07/11/2024 2:40 PM GEOLOGICAL SCIENCE TEACHER Temperature 36.6 C (97.9 F) 07/11/2024 12:20 PM GEOLOGICAL SCIENCE TEACHER Respiratory Rate 16 07/11/2024 2:40 PM GEOLOGICAL SCIENCE TEACHER Oxygen Saturation 100% 07/11/2024 2:40 PM GEOLOGICAL SCIENCE TEACHER Inhaled Oxygen Concentration - - Weight 86.2 kg (190 lb) 07/11/2024 12:20 PM GEOLOGICAL SCIENCE TEACHER Height 172.7 cm (5' 8) 07/11/2024 12:20 PM GEOLOGICAL SCIENCE TEACHER Body Mass Index 28.89 07/11/2024 12:20 PM GEOLOGICAL SCIENCE TEACHER Plan of Treatment Not on file Insurance [facility] PLAN [employer] ACCESS IDPA Care Teams Research Chemical Engineer Relationship Specialty Start Date End Date No, Physician PCP - General 03/12/17
[2025-03-02 15:56] VITALS: BP 136/84; PULSE 86; RESP 16; TEMP 36.3; O2SAT 97
--- NOTE | 2025-03-02 18:13 | PC.NURSE ---
Pt declined to be seen due to Im feeling better, Im not having any issues and I dont need to see a doctor. Pt requested to have his IV removed (initiated in route per EMS), removed by this RN. Pt ambulated out in no distress. Steady gait.
--- OUTSIDE RECORDS SUMMARY | 2025-03-02 19:15 | XMS_ITS | Clinical Summary ---
Author Organization [facility] Address [address] [place] [phone] Care Team Providers Care Fruit Rancher Name Role Phone No, Physician Primary Care Provider [phone] Allergies No known active allergies Medications dextromethorphan-gu [...] Comments Blood Pressure 128/81 07/11/2024 2:40 PM COMPUTER SYSTEM VALIDATION SPECIALIST Pulse 92 07/11/2024 2:40 PM COMPUTER SYSTEM VALIDATION SPECIALIST Temperature 36.6 C (97.9 F) 07/11/2024 12:20 PM COMPUTER SYSTEM VALIDATION SPECIALIST Respiratory Rate 16 07/11/2024 2:40 PM COMPUTER SYSTEM VALIDATION SPECIALIST Oxygen Saturation 100% 07/11/2024 2:40 PM COMPUTER SYSTEM VALIDATION SPECIALIST Inhaled Oxygen Concentration - - Weight 86.2 kg (190 lb) 07/11/2024 12:20 PM COMPUTER SYSTEM VALIDATION SPECIALIST Height 172.7 cm (5' 8) 07/11/2024 12:20 PM COMPUTER SYSTEM VALIDATION SPECIALIST Body Mass Index 28.89 07/11/2024 12:20 PM COMPUTER SYSTEM VALIDATION SPECIALIST Plan of Treatment Health Maintenance Due Date [...] 2024, 09/10/2021 Influenza Vaccine (#1) 2025 Insurance [facility] PLAN [facility] ACCESS IDPA Care Teams Fruit Rancher Relationship Specialty Start Date End Date No, Physician PCP - General 03/12/17
--- OUTSIDE RECORDS SUMMARY | 2025-03-02 19:15 | XMS_ITS | Referral Summary ---
Author Organization [facility] Address [address] [place] [phone] Care Team Providers Care Health Information Specialist Name Role Phone No, Physician Primary Care Provider [phone] Allergies No known active allergies Medications dextromethorphan-gu [...] Comments Blood Pressure 128/81 07/11/2024 2:40 PM MANAGER RESIDENTIAL Pulse 92 07/11/2024 2:40 PM MANAGER RESIDENTIAL Temperature 36.6 C (97.9 F) 07/11/2024 12:20 PM MANAGER RESIDENTIAL Respiratory Rate 16 07/11/2024 2:40 PM MANAGER RESIDENTIAL Oxygen Saturation 100% 07/11/2024 2:40 PM MANAGER RESIDENTIAL Inhaled Oxygen Concentration - - Weight 86.2 kg (190 lb) 07/11/2024 12:20 PM MANAGER RESIDENTIAL Height 172.7 cm (5' 8) 07/11/2024 12:20 PM MANAGER RESIDENTIAL Body Mass Index 28.89 07/11/2024 12:20 PM MANAGER RESIDENTIAL Plan of Treatment Not on file Insurance [facility] PLAN ANTHEM ACCESS IDPA Care Teams Health Information Specialist Relationship Specialty Start Date End Date No, Physician PCP - General 03/12/17
== END 2025-03-02 19:28 | disposition left against medical advice (07) ==
LOC: ANHED 19:14
PROVIDERS: Emergency Provider Emergency Medicine
DX: R10.9 Unspecified abdominal pain (principal)
CPT/HCPCS: 99199

== ENCOUNTER 2025-03-31 05:16 | Emergency (ER) | payer OTHER, SELFPAY ==
[2025-03-31 05:22] VITALS: BP 159/99; PULSE 72; RESP 16; TEMP 36.7; O2SAT 100
--- NOTE | 2025-03-31 05:31 | ED.DENTAL ---
HPI - Dental/Oral General Chief complaint: Dental/Oral Stated complaint: Bottom left toothache Time Seen by Provider: 03/31/25 05:23 History of Present Illness HPI Narrative: This is a 24-year-old male who presents to the ED for dental pain. Patient states that since yesterday, he has been having left mandibular dental pain similar to prior. Denies fevers, chills, nausea, vomiting. He has not been able to follow with a dentist. Related Data Allergies Allergy/AdvReac Type Severity Reaction Status Date / Time No Known Allergies Allergy Verified 03/31/25 05:24 Review of Systems Review of Systems: Gen.: Denies fevers or chills Eyes: Denies eye pain or visual change ENT: Denies congestion Respiratory: Denies shortness of breath or cough CV: Denies chest pain or palpitations GI: Denies abdominal pain nausea, emesis or diarrhea denies burning, urgency, frequency or hematuria Musculoskeletal: Denies back pain or muscle pain Neuro: Denies numbness, tingling, weakness or focal weakness Skin: Denies rash Except as documented, all other systems reviewed and negative [facility] Past Medical History Medical History Patient denies significant medical history Social History Social History Smoking status: Never smoker Exam Narrative: APPEARANCE: No acute distress, nontoxic, resting in bed HEENT: Normocephalic, atraumatic, OMM. Dental fracture to tooth 19 and 18, no areas of fluctuance RESPIRATORY: No respiratory distress CARDIOVASCULAR: Appears well perfused ABDOMINAL: Nondistended MUSCULOSKELETAl: Moves all extremities. No obvious deformities NEURO: Awake and alert. SKIN:: Warm, dry. No rashes lesions or abrasions PSYCHIATRIC: Normal affect/mood, Course Vital Signs Vital signs: Vital Signs Temperature 98.0 F 03/31/25 05:22 Pulse Rate 72 03/31/25 05:22 Respiratory Rate 16 03/31/25 05:22 Blood Pressure 159/99 H 03/31/25 05:22 Pulse Oximetry 100 03/31/25 05:22 Oxygen Delivery Room Air 03/31/25 05:22 Temperature 98.0 F 03/31/25 05:22 Pulse Rate 72 03/31/25 05:22 Respiratory Rate 16 03/31/25 05:22 Blood Pressure 159/99 H 03/31/25 05:22 Pulse Oximetry 100 03/31/25 05:22 Oxygen Delivery Room Air 03/31/25 05:22 MDM - Dental/Oral MDM Narrative Medical decision making narrative: 24-year-old male who presents to the ED for dental pain. He had fractured teeth to teeth 1918. No evidence of abscess. Patient will be given Toradol and Augmentin. He was given a prescription for hydrocodone and Augmentin. Patient was agreeable to this plan. Given strict return precautions. Differential Diagnosis Differential diagnosis: Likely gingival abscess, dental caries, dental abscess and fracture of tooth Medical Records Attestation: I reviewed the patient's medical records. Discharge Plan Discharge Clinical Impression: Acute pulpitis Fracture of tooth Qualifiers: Encounter type: initial encounter Fracture type: open Qualified Code(s): S02.5XXB - Fracture of tooth (traumatic), initial encounter for open fracture Patient Disposition: Home Condition: Stable Instructions: Antibiotic Form, Toothache (ED) Additional Instructions: Take Augmentin and hydrocodone as prescribed. You may also take ibuprofen. Please follow-up with dentistry and her PCP. Return to the ED for any new or worsening symptoms. Patient Language: Belgian Prescriptions: New hydrocodone-acetaminophen 5-325 mg tablet 1 tablet PO Q6H PRN (Reason: pain) Qty: 6 0RF amoxicillin-pot clavulanate 875-125 mg tablet 1 tablet PO Q12H Qty: 10 0RF Follow-up/Referrals: PHYSICIAN,ENGINE LATHE OPERATOR [Primary Care Provider, Internal Medicine]
[2025-03-31] MEDS: KETOROLAC 30 MG/ML VIAL (*BKC) IM (05:40)
== END 2025-03-31 05:51 | disposition home or self-care (01) ==
LOC: ANHED 05:41
PROVIDERS: Emergency Provider Student in an Organized Health Care Education/Training Program
DX: S02.5XXB Fracture of tooth (traumatic), initial encounter for open fracture (principal); X58.XXXA Exposure to other specified factors, initial encounter
CPT/HCPCS: 96372; 99283; A9270; J1885

== ENCOUNTER 2025-04-22 20:10 | Emergency (ER) | payer OTHER, SELFPAY ==
[2025-04-22 20:15] VITALS: BP 144/93; PULSE 78; RESP 18; TEMP 36.5; O2SAT 97
--- NOTE | 2025-04-22 22:27 | ED.DENTAL ---
HPI - Dental/Oral General Chief complaint: Dental/Oral Stated complaint: toothache Time Seen by Provider: 04/22/25 22:02 History of Present Illness HPI Narrative: Patient is a 24-year-old male who presents to the ER with complaints of dental pain. He reports his pain started yesterday. Patient reports he has dental caries in a cracked tooth in his bottom left jaw. He denies any recent fevers, episodes of drooling, or difficulty swallowing. Patient reports he has an appointment with a dentist set up for May 12, 2025. He denies any other medical history relevant to this ER visit. Related Data Allergies Allergy/AdvReac Type Severity Reaction Status Date / Time No Known Allergies Allergy Verified 03/31/25 05:24 Review of Systems Review of Systems: All systems reviewed & are unremarkable except as noted in HPI and below PMFSH Past Medical History Medical History Patient denies significant medical history Social History Social History Smoking status: Never smoker Exam Narrative: GENERAL: Well appearing, well-nourished, non-toxic, in no acute distress. HEAD: Normocephalic, atraumatic. Significant decay to L lower molars (#17 and #18) NECK: Supple. No adenopathy, no masses. RESPIRATORY: Airway patent, respirations nonlabored. Clear to auscultation bilaterally, no rales, rhonchi, wheezing. CARDIOVASCULAR: Regular rate and rhythm without murmurs, rubs, or gallops. Peripheral pulses 2+ and equal bilaterally. ABDOMINAL: Soft, nontender, nondistended, no hepatosplenomegaly. Normoactive BS. MUSCULOSKELETAL: Moves all extremities. Strength/ROM intact without gross deformities. SKIN: Warm, dry, normal color. No rashes. NEURO: A&O X3. Speech clear. Cranial nerves II-XII intact. No ataxic movements. PSYCHIATRIC: Appropriate mood and affect. Normal interaction. Course Vital Signs Vital signs: Vital Signs Temperature 36.5 C 04/22/25 20:15 Pulse Rate 78 04/22/25 20:15 Respiratory Rate 18 04/22/25 20:15 Blood Pressure 144/93 H 04/22/25 20:15 Pulse Oximetry 97 04/22/25 20:15 Oxygen Delivery Room Air 04/22/25 20:15 Temperature 36.5 C 04/22/25 20:15 Pulse Rate 78 04/22/25 20:15 Respiratory Rate 18 04/22/25 20:15 Blood Pressure 144/93 H 04/22/25 20:15 Pulse Oximetry 97 04/22/25 20:15 Oxygen Delivery Room Air 04/22/25 20:15 MDM - Dental/Oral MDM Narrative Medical decision making narrative: Patient is a 24-year-old male who presents to the ER with complaints of dental pain. He reports his pain started yesterday. Patient reports he has dental caries in a cracked tooth in his bottom left jaw. He denies any recent fevers, episodes of drooling, or difficulty swallowing. Patient reports he has an appointment with a dentist set up for May 12, 2025. He denies any other medical history relevant to this ER visit. Medications Ordered: Augmentin p.o., Toradol 60 mg IM, viscous lidocaine Diagnosis: Dental caries, dental infection, fracture of tooth Patient Education/Shared MDM: Results of examination shared with patient. He endorses improvement of symptoms following medication administration. Patient reports he did not believe he completed his antibiotic course prescribed to him last time he was in the ER (early March). Patient strongly advised to complete his full dose of antibiotics upon discharge and follow-up with his dentist as planned. He will be discharged home with a prescription for ibuprofen 800 mg p.o., viscous lidocaine, Augmentin p.o. Strict return precautions provided. Patient verbalized understanding and is in agreement with plan. Vital signs stable at time of discharge. All questions answered. Differential Diagnosis Differential diagnosis: Likely dental caries, toothache, dental abscess and fracture of tooth Discharge Plan Discharge Clinical Impression: Toothache, Dental caries, Fracture of tooth Patient Disposition: Home Condition: Stable Instructions: Antibiotic Form, Toothache (ED) Additional Instructions: Please return to the ER with any worsening symptoms. Follow-up with your dentist as planned. Take all medications as prescribed, including regularly scheduled medications. Complete your full dose of antibiotics. You may take ibuprofen and use viscous lidocaine for pain control. Patient Language: Thai Prescriptions: New amoxicillin-pot clavulanate 875-125 mg tablet 1 tablet PO Q12H Qty: 20 0RF lidocaine HCl [Lidocaine Viscous] 2 % solution 1 applic mucous membrane TID PRN (Reason: pain) Qty: 300 0RF ibuprofen 800 mg tablet 800 mg PO TID PRN (Reason: pain) Qty: 30 0RF No Action hydrocodone-acetaminophen 5-325 mg tablet 1 tablet PO Q6H PRN (Reason: pain) Qty: 6 0RF amoxicillin-pot clavulanate 875-125 mg tablet 1 tablet PO Q12H Qty: 10 0RF Follow-up/Referrals: PHYSICIAN,TANKER SERVICE ATTENDANT [Primary Care Provider, Internal Medicine] Stand Alone Forms: Work/School Release IP Time of Disposition: 22:35
[2025-04-22] MEDS: KETOROLAC (*BKC) 60 MG/2 ML VIAL IM (22:37)
[2025-04-22] MEDS: LIDOCAINE 2% VISC SOLN 15 ML UDC PO (22:37)
== END 2025-04-22 22:43 | disposition home or self-care (01) ==
PROVIDERS: Emergency Provider Registered Nurse
DX: K02.9 Dental caries, unspecified (principal); K03.81 Cracked tooth
CPT/HCPCS: 96372; 99283; A9270; J1885

== ENCOUNTER 2025-05-09 09:26 | Emergency (ER) | payer OTHER, SELFPAY ==
--- NOTE | ~2025-05-09 | XR_ITS ---
Examination: XR chest 1V portable Clinical History: URI Comparison: None Technique: Portable AP Findings: Heart size normal. Lungs clear. No acute bony abnormality. IMPRESSION: 1. No acute cardiopulmonary findings given portable technique. Reviewed, dictated and finalized at location R.
[2025-05-09 09:36] VITALS: BP 139/77; PULSE 85; RESP 18; TEMP 36.7; O2SAT 100
--- OUTSIDE RECORDS SUMMARY | 2025-05-09 09:56 | XMS_ITS | Clinical Summary ---
Author Organization 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 Pulse 92 07/11/2024 2:40 PM [employer] Temperature 36.6 C (97.9 F) 07/11/2024 12:20 PM [employer] FASTENER DRIVER Respiratory Rate 16 07/11/2024 2:40 PM [employer]UG[employer] FASTENER DRIVER Oxygen Saturation 100% 07/11/2024 2:40 PM [employer]UG[employer] FASTENER DRIVER Inhaled Oxygen Concentration - - Weight 86.2 kg (190 lb) 07/11/2024 12:20 PM [employer] FAST[employer] DRIVER Height 172.7 cm (5' 8) 07/11/2024 12:20 PM [employer] FASTENER DRIVER Body Mass Index 28.89 07/11/2024 12:20 PM [employer] FA[employer]ENER DRIVER Plan of Treatment Health Maintenance Due Date [...] PCV) 2017 Covid-19 Vaccine (3 - season) 2025, 09/10/2021 Influenza Vaccine (#1) 2025 Insurance [facility] PLAN [facility] ACCESS IDPA Care Teams Fireworks Maker Relationship Specialty Start Date End Date No, Physician PCP - General 03/12/17
[2025-05-09 11:04] LABS: Influenza A QL RT-PCR Negative (Negative); Influenza B QL RT-PCR Negative (Negative); RSV RNA, RT-PCR Negative (Negative); SARS-CoV-2 RNA PCR Negative (Negative)
[2025-05-09 11:38] LABS: Strep Group A RT-PCR NOT DETECTED (Negative)
--- NOTE | 2025-05-09 12:08 | ED.GENADULT ---
HPI - General Adult General Chief complaint: Upper Respiratory Infection Stated complaint: WANTS COVID TEST Time Seen by Provider: 05/09/25 09:42 History of Present Illness HPI narrative: This is a 24-year-old male presenting with URI symptoms. Patient woke up this morning with a scratchy throat, nausea and body aches. No fevers, chest pain difficulty breathing abdominal pain vomiting or diarrhea. He would like a COVID test. Related Data Allergies Allergy/AdvReac Type Severity Reaction Status Date / Time No Known Allergies Allergy Verified 05/09/25 09:41 [facility] Past Medical History Medical History Patient denies significant medical history Social History Social History Smoking status: Never smoker Exam Narrative: APPEARANCE: No apparent distress. Head: Mild erythema to the posterior oropharynx without exudates.. EYES: EOMI, NOSE: Atraumatic NECK: Trachea midline RESPIRATORY: No increased rate of breathing CTAB CARDIOVASCULAR: RRR, ABDOMINAL: Non-distended soft nontender MUSCULOSKELETAl: No obvious deformities NEURO: Alert. Moving 4/4 extremities SKIN:: Warm, dry. Normal color PSYCHIATRIC: Normal affect Course Vital Signs Vital signs: Vital Signs Temperature 98.0 F 05/09/25 09:36 Pulse Rate 85 05/09/25 09:36 Respiratory Rate 18 05/09/25 09:36 Blood Pressure 139/77 05/09/25 09:36 Pulse Oximetry 100 05/09/25 09:36 Oxygen Delivery Room Air 05/09/25 09:36 Temperature 98.0 F 05/09/25 09:36 Pulse Rate 85 05/09/25 09:36 Respiratory Rate 18 05/09/25 09:36 Blood Pressure 139/77 05/09/25 09:36 Pulse Oximetry 100 05/09/25 09:36 Oxygen Delivery Room Air 05/09/25 10:27 Medical Decision Making [facility] Narrative Medical decision making narrative: -Course: 24-year-old male presenting with URI symptoms. On exam he has mild erythema posterior pharynx. COVID flu and strep were negative. Given a dose of dexamethasone for viral pharyngitis. Patient discharged with return precautions. -DDX includes but is not limited to: Viral syndrome, strep throat, mono Vital Signs Vital Signs: Vital Signs Temperature 98.0 F 05/09/25 09:36 Pulse Rate 85 05/09/25 09:36 Respiratory Rate 18 05/09/25 09:36 Blood Pressure 139/77 05/09/25 09:36 Pulse Oximetry 100 05/09/25 09:36 Oxygen Delivery Room Air 05/09/25 09:36 Temperature 98.0 F 05/09/25 09:36 Pulse Rate 85 05/09/25 09:36 Respiratory Rate 18 05/09/25 09:36 Blood Pressure 139/77 05/09/25 09:36 Pulse Oximetry 100 05/09/25 09:36 Oxygen Delivery Room Air 05/09/25 10:27 Lab Data Labs: Lab Results 05/09/25 05/09/25 Range/Units 10:24 10:58 Influenza A (RT-PCR) Negative (Negative) Influenza B (RT-PCR) Negative (Negative) RSV (RT-PCR) Negative (Negative) SARS-CoV-2 RNA (RT-PCR) Negative (Negative) Group A Strep (PCR) Not detected (Negative) Discharge Plan Discharge Clinical Impression: Pharyngitis Patient Disposition: Home Condition: Stable Instructions: Antibiotic Form, Pharyngitis (ED) Additional Instructions: You were seen for a sore throat. This is likely a virus. You should improve over the next 3-5 days. If you develop significant pain, a muffled voice or inability to swallow or feel like her condition is getting worse please return to the ED for re-evaluation. Patient Language: Czech Prescriptions: No Action hydrocodone-acetaminophen 5-325 mg tablet 1 tablet PO Q6H PRN (Reason: pain) Qty: 6 0RF amoxicillin-pot clavulanate 875-125 mg tablet 1 tablet PO Q12H Qty: 10 0RF amoxicillin-pot clavulanate 875-125 mg tablet 1 tablet PO Q12H Qty: 20 0RF lidocaine HCl [Lidocaine Viscous] 2 % solution 1 applic mucous membrane TID PRN (Reason: pain) Qty: 300 0RF ibuprofen 800 mg tablet 800 mg PO TID PRN (Reason: pain) Qty: 30 0RF Follow-up/Referrals: PHYSICIAN,HARNESS CLEANER [Primary Care Provider, Internal Medicine]
[2025-05-09] MEDS: ACETAMINOPHEN 500 MG TABLET 1000 MG PO (12:36)
[2025-05-09] MEDS: IBUPROFEN 400 MG TABLET 800 MG PO (12:36)
[2025-05-09] MEDS: dexAMETHasone SOD PHOS INJ 10 MG/ML 1 ML VIAL IM (12:37)
[2025-05-09 12:44] VITALS: BP 136/95; PULSE 76; RESP 18; O2SAT 100
== END 2025-05-09 12:45 | disposition home or self-care (01) ==
PROVIDERS: Emergency Provider Emergency Medicine
DX: J02.9 Acute pharyngitis, unspecified (principal); Z20.822 Contact with and (suspected) exposure to COVID-19
CPT/HCPCS: 71045; 87637; 87651; 96372; 99283; A9270; J1100